=== PATIENT | male | born 1955 | race Hispanic/Latino ===

== ENCOUNTER 2022-10-28 19:47 | Emergency (ER) | payer OTHER, MEDICARE ==
[~2022-10-28] VITALS: Ht 177.8 cm; Wt 102.1 kg
[2022-10-28] MEDS ORDERED: MORPHINE 2 MG SYG IM ONE (20:30)
[2022-10-28] MEDS ORDERED: CYCLOBENZAPRINE HCL 10 MG TABLET PO ONE (20:30)
[2022-10-28 20:54] LABS: APPEARANCE,URINE CLEAR (CLEAR); BILIRUBIN,URINE NEGATIVE (NEGATIVE); COLOR,URINE LIGHT-YELLOW (YELLOW); GLUCOSE, URINE (UA) NEGATIVE (NEGATIVE); KETONES,URINE NEGATIVE (NEGATIVE); LEUKOCYTE ESTERASE ,URINE NEGATIVE Leu/uL (NEGATIVE); MUCUS,URINE RARE LPF (None Seen); NITRATE,URINE NEGATIVE (NEGATIVE); PH,URINE 5.5 (5.0-8.0); PROTEIN,URINE NEGATIVE (NEGATIVE); UROBILINOGEN,URINE 0.2 mg/dL (0.2-1.0); WBC,URINE 0-1 /HPF (0-1)
[2022-10-28] MEDS ORDERED: CYCL-309 PO (21:30)
[2022-10-28] MEDS ORDERED: GABA300C PO (21:30)
[2022-10-28] MEDS ORDERED: IBUP-1493 PO (21:30)
[2022-10-28 22:07] VITALS: BP 136/80
== END 2022-10-28 22:09 | disposition home or self-care (01) ==
LOC: EDH 19:47
DX: R10.9 Unspecified abdominal pain (principal); M54.50 Low back pain, unspecified; I10 Essential (primary) hypertension; M47.816 Spondylosis without myelopathy or radiculopathy, lumbar region
CPT/HCPCS: 99284; 81001; 72100; 96372; J2270

== ENCOUNTER 2023-02-13 13:42 | Emergency (ER) | payer MEDICARE, OTHER ==
[~2023-02-13] VITALS: Ht 177.8 cm; Wt 102.1 kg
[~2023-02-13 13:42] MED LIST: CYCL-309 PO; GABA300C PO; IBUP-1493 PO
[2023-02-13] MEDS ORDERED: FAMOTIDINE 20MG TAB ONE (14:17)
[2023-02-13] MEDS ORDERED: ONDANSETRON ODT 4MG TAB ONE (14:18)
[2023-02-13] MEDS ORDERED: HYDROXYZINE 25 MG TABLET ONE (14:18)
[2023-02-13] MEDS ORDERED: FAMOTIDINE 20MG TAB PO ONE (14:30)
[2023-02-13] MEDS ORDERED: HYDROXYZINE 25 MG TABLET PO ONE (14:30)
[2023-02-13] MEDS ORDERED: ONDANSETRON ODT 4MG TAB SL ONE (14:30)
[2023-02-13 15:31] VITALS: BP 149/69; PULSE 63; RESP 20; O2SAT 95
[2023-02-13] MEDS ORDERED: HYDR-3421 PO (15:48)
[2023-02-13] MEDS ORDERED: [UNRECOGNIZED DRUG - CODE] TP (15:48)
[2023-02-13] MEDS ORDERED: CETI10TA57 PO (15:48)
== END 2023-02-13 15:56 | disposition home or self-care (01) ==
LOC: EDH 13:42
DX: B09 Unspecified viral infection characterized by skin and mucous membrane lesions (principal); J06.9 Acute upper respiratory infection, unspecified; M19.90 Unspecified osteoarthritis, unspecified site; I10 Essential (primary) hypertension; Z79.1 Long term (current) use of non-steroidal anti-inflammatories (NSAID); Z79.899 Other long term (current) drug therapy; Z88.6 Allergy status to analgesic agent; Z90.49 Acquired absence of other specified parts of digestive tract
CPT/HCPCS: 93005

== ENCOUNTER 2023-04-03 14:10 | Emergency (ER) | payer OTHER ==
[~2023-04-03] VITALS: Ht 177.8 cm; Wt 101.6 kg
[~2023-04-03 14:10] MED LIST changes: +CETI10TA57 PO; +HYDR-3421 PO; +[UNRECOGNIZED DRUG - CODE] TP
[2023-04-03 14:26] VITALS: BP 169/92; PULSE 67; RESP 17; O2SAT 98
[2023-04-03 15:31] LABS: BASOPHILS # (AUTO) 0.05 K/uL (0.00-0.20); EOSINOPHILS # (AUTO) 0.08 K/uL (0.00-0.70); EOSINOPHILS % (AUTO) 1.7 % (0.0-8.0); HEMATOCRIT 44.1 % (42-54); IMMATURE GRANULOCYTE ABSOLUTE 0.02 K/uL (0-1); LYMPHOCYTES # (AUTO) 1.2 K/uL (1.0-4.8); LYMPHOCYTES % (AUTO) 24.5 % (21.0-51.0); MEAN CORPUSCULAR HEMOGLOBIN 32.1 pg (27.0-33.0); MEAN CORPUSCULAR VOLUME 94.2 fL (79-99); MONOCYTES # (AUTO) 0.5 K/uL (0.1-1.0); MONOCYTES % (AUTO) 10.8 % (3.0-13.0); NEUTROPHILS % (AUTO) 61.6 % (40.0-77.0); PLATELET COUNT (AUTO) 109 K/uL (130-400); RED BLOOD CELL COUNT(AUTO) 4.68 MIL/uL (4.50-6.20); RED CELL DISTRIBUTION WIDTH 12.5 % (11.0-15.5); WHITE BLOOD COUNT (AUTO) 4.8 K/uL (4.8-10.8)
[2023-04-03 15:40] LABS: CREATININE 0.9 mg/dL (0.5-1.5); POTASSIUM 3.8 mmol/L (3.5-5.1)
[2023-04-03] MEDS ORDERED: CLIN-141 PO (15:44)
[2023-04-03] MEDS ORDERED: IBUP-2070 PO (15:44)
== END 2023-04-03 15:54 | disposition home or self-care (01) ==
LOC: EDH 14:10
DX: S52.021A Displaced fracture of olecranon process without intraarticular extension of right ulna, initial encounter for closed fracture (principal); W18.39XA Other fall on same level, initial encounter; Y93.89 Activity, other specified; Y92.89 Other specified places as the place of occurrence of the external cause; Y99.8 Other external cause status
CPT/HCPCS: 36415; 73070; 80048; 85025

== ENCOUNTER 2023-04-08 23:27 | Emergency (ER) | payer OTHER ==
[~2023-04-08] VITALS: Ht 177.8 cm; Wt 102.5 kg
[~2023-04-08 23:27] MED LIST changes: +CLIN-141 PO; +IBUP-2070 PO
[2023-04-09 00:27] LABS: POTASSIUM 3.9 mmol/L (3.5-5.1)
[2023-04-09 00:49] LABS: HEMATOCRIT 42.8 % (42-54); MEAN CORPUSCULAR HGB CONC 33.6 g/dL (32.0-36.0); MEAN CORPUSCULAR VOLUME 95.1 fL (79-99); RED BLOOD CELL COUNT(AUTO) 4.5 MIL/uL (4.50-6.20); RED CELL DISTRIBUTION WIDTH 13.2 % (11.0-15.5); WHITE BLOOD COUNT (AUTO) 7.3 K/uL (4.8-10.8)
[2023-04-09 01:23] VITALS: BP 154/84; PULSE 74; RESP 16; O2SAT 98
== END 2023-04-09 01:24 | disposition home or self-care (01) ==
LOC: EDH 23:27
DX: M70.31 Other bursitis of elbow, right elbow (principal); M77.8 Other enthesopathies, not elsewhere classified; Y93.89 Activity, other specified; Z79.899 Other long term (current) drug therapy; Z90.49 Acquired absence of other specified parts of digestive tract; Z98.890 Other specified postprocedural states; Z88.8 Allergy status to other drugs, medicaments and biological substances
CPT/HCPCS: 36415; 73200; 80048; 85027

== ENCOUNTER → 2023-06-14 | Outpatient (CLI) | payer OTHER ==
[2023-06-14 12:37] LABS: POTASSIUM 3.9 mmol/L (3.5-5.1)
== END | disposition home or self-care (01) ==
LOC: LAB 08:49
PROVIDERS: ATTEND Student in an Organized Health Care Education/Training Program
DX: R07.9 Chest pain, unspecified (principal)
CPT/HCPCS: 36415; 80048

== ENCOUNTER → 2023-06-20 | Outpatient (CLI) | payer OTHER ==
[~2023-06-20] MED LIST changes: +IOHEXOL 350 MG/ML 100ML INFUS..BTL IV ONE
== END | disposition home or self-care (01) ==
LOC: RAH 07:55
PROVIDERS: ATTEND Student in an Organized Health Care Education/Training Program
DX: I25.10 Atherosclerotic heart disease of native coronary artery without angina pectoris (principal); R07.9 Chest pain, unspecified; M47.815 Spondylosis without myelopathy or radiculopathy, thoracolumbar region
CPT/HCPCS: 75574; Q9967

== ENCOUNTER → 2023-06-30 | Outpatient (CLI) | payer OTHER ==
[~2023-06-30] MED LIST changes: -IOHEXOL 350 MG/ML 100ML INFUS..BTL IV ONE
== END | disposition home or self-care (01) ==
LOC: SHCH 07:57
PROVIDERS: ATTEND Student in an Organized Health Care Education/Training Program
DX: I34.0 Nonrheumatic mitral (valve) insufficiency (principal); R07.9 Chest pain, unspecified
CPT/HCPCS: 93306

== ENCOUNTER 2023-09-30 14:07 | Emergency (ER) | payer OTHER ==
[~2023-09-30] VITALS: Ht 177.8 cm; Wt 99.8 kg
[~2023-09-30 14:07] MED LIST changes: +AEC81 PO; +ATOR40TA71 PO; -CETI10TA57 PO; -CLIN-141 PO; -GABA300C PO; -HYDR-3421 PO; -IBUP-1493 PO; -IBUP-2070 PO; +METH4TAB15 PO; +METO-408 PO; -[UNRECOGNIZED DRUG - CODE] TP
[2023-09-30 15:01] LABS: RAPID GROUP A STREP negative (NEGATIVE)
[2023-09-30 15:02] LABS: SARS-CoV-2, RNA, NAAT NEGATIVE SARS CoV-2 (NEGATIVE)
[2023-09-30 15:11] LABS: INFLUENZA TYPE A Negative For Type A (NEGATIVE); INFLUENZA TYPE B Negative For Type B (NEGATIVE)
[2023-09-30] MEDS: ONDANSETRON ODT 4MG TAB SL ONE (18:20)
[2023-09-30] MEDS: AZITHROMYCIN 250 MG TABLET PO ONE (18:20)
[2023-09-30] MEDS ORDERED: METH4TAB3 PO (18:30)
[2023-09-30] MEDS ORDERED: ONDA4TAB10 PO (18:30)
[2023-09-30] MEDS ORDERED: AZIT250T9 PO (18:30)
[2023-09-30 18:58] VITALS: BP 130/80; PULSE 91; RESP 20; O2SAT 97
== END 2023-09-30 19:00 | disposition home or self-care (01) ==
LOC: EDH 14:07
DX: J20.9 Acute bronchitis, unspecified (principal); I10 Essential (primary) hypertension; Z20.822 Contact with and (suspected) exposure to COVID-19; Z79.82 Long term (current) use of aspirin; Z79.899 Other long term (current) drug therapy; Z98.890 Other specified postprocedural states; Z95.1 Presence of aortocoronary bypass graft; Z88.6 Allergy status to analgesic agent
CPT/HCPCS: 71045; 87635; 87804; 87880

== ENCOUNTER → 2024-02-03 | Outpatient (CLI) | payer OTHER ==
[~2024-02-03] MED LIST changes: +AZIT250T9 PO; +METH4TAB3 PO; +ONDA-243 PO
[2024-02-03] MEDS: REGADENOSON 0.4 MG/5 ML PF SYG IVP SCH (13:51)
== END | disposition home or self-care (01) ==
LOC: RAH 08:18
PROVIDERS: ATTEND Student in an Organized Health Care Education/Training Program
DX: R07.9 Chest pain, unspecified (principal)
CPT/HCPCS: 78452; 93017; J2785; A9500 ×2